=== PATIENT | female | born 1930 | race Caucasian/White ===

== ENCOUNTER 2016-08-31 16:24 | Emergency (ER) | payer MEDICARE, OTHER ==
[2016-08-31 17:12] LABS: BASOPHILS 0.8 % (0.0-2.0); EOSINOPHILS 0.9 % (0.0-6.0); EOSINOPHILS# 0.1 X 10^3uL (0.0-0.4); HEMOGLOBIN 13.1 g/dL (12.0-16.0); LYMPHOCYTES 21.1 % (20.0-40.0); LYMPHOCYTES# 1.3 X 10^3uL (0.8-3.8); MEAN CORPUS. HGB CONCENTRATION 33.6 g/dL (32.0-36.0); MEAN CORPUSCULAR HEMOGLOBIN 30.9 pg (29.0-35.0); MEAN PLATELET VOLUME 10.7 fL (7.4-10.4); MONOCYTES 8.8 % (2.0-10.0); MONOCYTES# 0.5 X 10^3uL (0.2-1.0); NEUTROPHILS 68.4 % (54.0-75.0); NEUTROPHILS# 4.2 X 10^3uL (2.6-6.7); PLATELET COUNT 157 X 10^3uL (130-440); RED BLOOD COUNT 4.24 X 10^6uL (4.20-6.10); RED CELL DISTRIBUTION WIDTH 12.9 % (11.5-14.5); WHITE BLOOD COUNT 6.2 X 10^3uL (3.9-10.7)
[2016-08-31] MEDS ORDERED: LABETALOL HCL 100 MG/20 ML VIAL IV ONE (17:16)
[2016-08-31 17:23] LABS: BLOOD UREA NITROGEN 28 mg/dL (7-17); CALCIUM 9.6 mg/dL (8.4-10.2); CHLORIDE 107 mmol/L (98-107); GLUCOSE 95 mg/dL (70-100); POTASSIUM 4.8 mmol/L (3.5-5.1); SODIUM 143 mmol/L (137-145)
[2016-08-31 17:46] LABS: TROPONIN I < 0.012 ng/mL (0.00-0.034)
[2016-08-31] MEDS ORDERED: LISINOPRIL 20 MG TABLET PO ONE (18:26)
--- NOTE | 2016-08-31 19:09 | ER NURSING DOCUMENTATION ---
Nurse's Notes [facility] Name:Ya Chong Age:85 yrs Sex:Female :1930 Arrival Date:08/31/2016 Time:16:24 BedTrauma-A Private MD:Cornell Mcgee Diagnosis:Hypertensive Headache Presentation: 08/31 16:41 Presenting complaint: Patient states: high BP with Headache. Transition of care: [facility]. charmaine Notified ED Physician of patient's arrival and CC Surinder Palm notified. 16:41 Method Of Arrival: Wheelchair cb 16:41 Acuity: CHARLENE 3 cb 16:57 Acuity: CHARLENE 2 lpr Triage Assessment: 18:04 Headache History: Other patient states that she has had a headache for two weeks. cb General: Appears in no apparent distress, well groomed, Behavior is cooperative. Pain: Complains of pain in occipital area and base of the skull Pain currently is 5 out of 10 on a pain scale. Pain began two weeks Also complains of no other associated symptoms. EENT: No deficits noted. Neuro: Level of Consciousness is awake, alert, Oriented to person, place, time, event, Reports headache occipital area, two weeks . Cardiovascular: Rhythm is regular. Respiratory: Airway is patent Trachea midline Respiratory effort is even, unlabored, Respiratory pattern is regular, symmetrical. GI: No deficits noted. : No deficits noted. Derm: Rash noted that is macular, papular, red, on right huitron and left huitron. Musculoskeletal: No deficits noted. Historical: - Allergies: Ciprofloxacin HCl; Sulfa (Sulfonamide Antibiotics); Pollens ; - Home Meds: 1. Tylenol 2. Aspirin Oral 3. Artificial Tears Opht 4. arnicare 5. Max Freeze 6. Levothroid Oral 7. Vitamin D Oral - PMHx: HYPOTHYROIDISM; closed head injury; - PSHx: nephrectomy ; HIP SURGERY; - Tetanus: unknown. - Ebola Screening: : Patient negative for fever greater than or equal to 101.5 degrees Fahrenheit, and additional compatible Ebola Virus Disease symptoms. Patient denies exposure to infectious person. Patient denies travel to an Ebola-affected area in the 21 days before illness onset. No symptoms or risks identified at this time. . - Immunization history: Pneumococcal vaccine is up to date, Flu Vaccine < 1 year. - Social history: Smoking status: Patient states was never smoker of tobacco. Screenin:17 Infectious Disease Risk None. Abuse screen: Denies threats or abuse. Denies injuries cb from another. Nutritional screening: No deficits noted. Vital Signs: 16:35 BP 210 / 110; Pulse 89; Resp 22; Temp 97.0(TE); Pulse Ox 94% ; Weight 51.71 kg; Height cb 5 ft. 4 in. (162.56 cm); Pain 5/10; 16:55 BP 202 / 88; Pulse 85; Resp 23; Pulse Ox 97% on R/A; cb 17:13 BP 180 / 110 (auto/); cb 17:17 Pulse 76 MON; Resp 20; Pulse Ox 92% ; cb 17:18 BP 180 / 87 (auto/); cb 17:22 Pulse 74 MON; Resp 21; Pulse Ox 89% ; cb 17:23 BP 191 / 92 (auto/); cb 17:27 Pulse 76 MON; Resp 20; Pulse Ox 94% ; cb 17:45 BP 184 / 87 (auto/); cb 17:47 Pulse 72 MON; Resp 20; Pulse Ox 93% ; cb 18:12 Pulse 72 MON; Resp 23; Pulse Ox 94% ; cb 18:15 BP 178 / 89 (auto/); cb 18:31 BP 186 / 94 (auto/); cb 18:32 Resp 30; cb 16:35 Body Mass Index 19.57 (51.71 kg, 162.56 cm) cb ED Course: 16:28 Patient arrived in ED. jl 16:28 Cornell Mcgee MD is Private Physician. jl 16:41 Mignon Love, RN is Primary Nurse. cb 16:42 Triage completed. cb 16:42 EKG done. (by ED staff). Reviewed by Benton Cadena MD. cb 16:45 Inserted peripheral IV: 18 gauge in right antecubital area and blood collected. cb 16:45 Labs drawn. (by ED staff). Sent per order to lab. cb 16:48 Benton Cadena MD is Attending Physician. jm 17:57 Port Xray Completed. hz 18:09 Cornell Mcgee MD is Referral Physician. jm 18:17 Valuables Remains with patient Patient has correct armband on for positive cb identification. Placed in gown. Bed in low position. Call light in reach. Side rails up X2. Adult w/ patient. Administered Medications: 17:05 CANCELLED (Physician Discretion): Labetalol 20 mg IVP once over 2 mins jm 17:10 Drug: Labetalol 10 mg; Route: IVP; Infused Over: 2 mins; Site: right antecubital; cb 18:21 Follow up: Response: Blood pressure is lowered cb 18:22 Drug: Lisinopril 20 mg; Route: PO; cb 19:23 Follow up: Response: Blood pressure is lowered cb Outcome: 16:55 Discharged to home via wheelchair, with friend. cb 16:55 Condition: stable 16:55 Discharge instructions given to patient, friend, Instructed on discharge instructions, follow up and referral plans. medication usage, Demonstrated understanding of instructions, medications, Prescriptions given X 1. 16:55 IV D/Arun 18:10 Discharge ordered by . avtar 19:09 Patient left the ED. charmaine 09/01 13:13 Discharge F/U Call: Spoke with: patient. Have you filled your prescriptions? yes. Did lp your discharge instructions answer all of your questions? Overall Care on a scale of 1-10 with 10 being the best care, you rate our care as: the rating of 10. Signatures: Mignon Love, RN RN Otilia Escamilla RN RN lp Meyer, John, MD MD jm Roberts, Leslie, RN RN lpr Zolnowski, Heather hz Lietz, Jeff jl
--- NOTE | 2016-08-31 19:09 | ER PHYSICIAN DOCUMENTATION ---
Physician Documentation [facility] Name:Ya Chong Age:85 yrs Sex:Female :1930 Arrival Date:08/31/2016 Time:16:24 BedTrauma-A Private MD:Cornell Mcgee ED, John Disposition: 08/31/16 18:10 Discharged to Home/Self Care. Impression: Hypertensive Headache. - Condition is Good. - Discharge Instructions: HIGH BLOOD PRESSURE Established Out of Control - HYPERTENSION, Established, Out of Control. - Prescriptions for Lisinopril 20 mg Oral - take 1 tablet by ORAL route once daily; 30 tablet. - Medical Reconciliation form form. - Follow up: Cornell Mcgee MD; When: 1 week; Reason: Continuance of care. - Problem is new. - Symptoms have improved. HPI: 08/31 18:27 This 85 yrs old Female presents to ER via Wheelchair with complaints of High Blood Pressure, Headache. 18:27 The patient has elevated blood pressure and discovered this at a drugstore, at a physician's office, and sent to the emergency department for evaluation. Onset: The symptom(s)/episode began/occurred today. Modifying factors:. Associated signs and symptoms: Pertinent positives: headache. Severity of symptoms: At its worst the blood pressure was 210 mm Hg. The patient has not experienced similar symptoms in the past. The patient has been recently seen by a physician: the patient's primary care provider, Dr. Mcgee, with different complaint(s), rash. . [facility]. She called Dr. Mcgee's office and was told to come to the ER for management since she also had a REED. . Historical: - Allergies: Ciprofloxacin HCl; Sulfa (Sulfonamide Antibiotics); Pollens ; - Home Meds: 1. Tylenol 2. Aspirin Oral 3. Artificial Tears Opht 4. arnicare 5. Max Freeze 6. Levothroid Oral 7. Vitamin D Oral - PMHx: HYPOTHYROIDISM; closed head injury; - PSHx: nephrectomy ; HIP SURGERY; - Tetanus: unknown. - Ebola Screening: : Patient negative for fever greater than or equal to 101.5 degrees Fahrenheit, and additional compatible Ebola Virus Disease symptoms. Patient denies exposure to infectious person. Patient denies travel to an Ebola-affected area in the 21 days before illness onset. No symptoms or risks identified at this time. . - Immunization history: Pneumococcal vaccine is up to date, Flu Vaccine < 1 year. - Social history: Smoking status: Patient states was never smoker of tobacco. ROS: 18:28 Constitutional: Negative for fatigue, fever. jm 18:28 Eyes: Negative for blurry vision, visual disturbance. 18:28 Cardiovascular: Negative for chest pain. 18:28 Respiratory: Negative for cough, shortness of breath. 18:28 Abdomen/GI: Negative for abdominal pain, nausea, vomiting, diarrhea. 18:28 Back: Negative for pain with movement, radiated pain. 18:28 : Negative for urinary symptoms, urinary frequency. 18:28 MS/extremity: Positive for swelling. 18:28 Skin: Positive for swelling. 18:28 Neuro: Positive for headache. 18:28 All other systems are negative. Exam: 18:35 Constitutional: The patient appears alert, awake, comfortable. jm 18:35 Eyes: Periorbital structures: appear normal, Pupils: equal, round, and reactive to light and accomodation. 18:35 ENT: Mouth: is normal, Voice: is normal. 18:35 Cardiovascular: Rate: normal, Rhythm: regular. 18:35 Respiratory: Respirations: normal, Breath sounds: are normal. 18:35 Abdomen/GI: Bowel sounds: normal, Palpation: abdomen is soft and non-tender. 18:35 Musculoskeletal/extremity: Circulation is intact in all extremities. Sensation intact. DVT Exam: No signs of deep vein thrombosis. Calves: are non-tender, have equal circumference. 18:35 Neuro: Mentation: is normal, Memory: is normal. 18:35 Neuro: Orientation: is normal. 18:35 Psych: Behavior/mood is pleasant, cooperative, Affect is calm. Vital Signs: 16:35 BP 210 / 110; Pulse 89; Resp 22; Temp 97.0(TE); Pulse Ox 94% ; Weight 51.71 kg; Height cb 5 ft. 4 in. (162.56 cm); Pain 5/10; 16:55 BP 202 / 88; Pulse 85; Resp 23; Pulse Ox 97% on R/A; cb 17:13 BP 180 / 110 (auto/); cb 17:17 Pulse 76 MON; Resp 20; Pulse Ox 92% ; cb 17:18 BP 180 / 87 (auto/); cb 17:22 Pulse 74 MON; Resp 21; Pulse Ox 89% ; cb 17:23 BP 191 / 92 (auto/); cb 17:27 Pulse 76 MON; Resp 20; Pulse Ox 94% ; cb 17:45 BP 184 / 87 (auto/); cb 17:47 Pulse 72 MON; Resp 20; Pulse Ox 93% ; cb 18:12 Pulse 72 MON; Resp 23; Pulse Ox 94% ; cb 18:15 BP 178 / 89 (auto/); cb 18:31 BP 186 / 94 (auto/); cb 18:32 Resp 30; cb 16:35 Body Mass Index 19.57 (51.71 kg, 162.56 cm) cb MDM: 16:48 Patient medically screened. 09/01 11:52 Differential diagnosis: hypertensive crisis. Data reviewed: vital signs, nurses notes, old medical records, lab test result(s), EKG, radiologic studies, and as a result, I will discharge patient. Test interpretation: by ED physician or midlevel provider: plain radiologic studies, ECG. Counseling: I had a detailed discussion with the patient and/or guardian regarding: the historical points, exam findings, and any diagnostic results supporting the discharge/admit diagnosis, lab results, radiology results, the need for outpatient follow up. ECG:. Medication response: The patient's symptoms have improved, labetolol . Physician consultation: Cornell Mcgee MD regarding patient's condition, outpatient follow-up, next week, and will see patient next week, would like medications started, lisinopril 20mg Q day. ED course: Pt w HTN REED and crisis. No signs of end organ damage based on labs. BP better after meds. Will send home w lisopril rx and f/u next week w Dr. Mcgee. . 08/31 17:20 Order name: CBC AUTO DIF, MDIF/RMOR IF IND; Complete Time: 17:48 [facility] 08/31 17:47 Order name: BASIC METABOLIC PANEL; Complete Time: 17:48 [facility] 08/31 17:47 Order name: TROPONIN I; Complete Time: 17:48 [facility] 08/31 18:06 Order name: [place]ST [place] [id number]; Complete Time: 18:07 [facility] 08/31 16:49 Order name: 12-lead EKG; Complete Time: 17:00 08/31 16:49 Order name: Iv Saline Lock; Complete Time: 17: 08/31 16:49 Order name: Pulse Ox Continuous; Complete Time: : EC:52 Rhythm is regular. QRS [place] is Normal. MA interval is normal. QRS interval is normal. T jm waves are Normal. No ST changes noted. Dispensed Medications: 08/31 17:05 CANCELLED (Physician Discretion): Labetalol 20 mg IVP once over 2 mins 17:10 Drug: Labetalol 10 mg; Route: IVP; Infused Over: 2 mins; Site: right antecubital; cb 18:21 Follow up: Response: Blood pressure is lowered cb 18:22 Drug: Lisinopril 20 mg; Route: PO; cb 19:23 Follow up: Response: Blood pressure is lowered cb Signatures: Mignon Love RN RN Benton Manuel MD MD
--- NOTE | 2016-09-01 07:53 | RADIOLOGY REPORT ---
A limited single portable view of the chest is compared with the prior exam dated 03/20/2012. Cardiac silhouette is now at the upper limits of normal. Again noted is evidence of old granulomatous disease. The pulmonary vasculature appears unremarkable. No infiltrate, fluid or pneumothorax is seen. IMPRESSION: Stable evidence of old granulomatous disease. No acute cardiopulmonary abnormality is identified. MTDD
== END 2016-08-31 19:09 | disposition home or self-care (01) ==
LOC: ER 16:24
DX: R51 Headache (principal); I16.9 Hypertensive crisis, unspecified; I10 Essential (primary) hypertension; Z79.899 Other long term (current) drug therapy; Z79.82 Long term (current) use of aspirin
CPT/HCPCS: 71010; 80048; 84484; 85025; 93005; 93010; 96374; 99284; 99285

== ENCOUNTER 2016-09-02 12:24 | Observation (INO) | payer MEDICARE, OTHER ==
[2016-09-02] MEDS ORDERED: HOME MEDICATION LIST NEEDED 1 EA EACH MC ONE (12:27)
[2016-09-02] MEDS ORDERED: MAG-AL PLUS XS SUSP 30 ML UDC PO PRN (12:27)
[2016-09-02] MEDS ORDERED: ZOLPIDEM TARTRATE 5 MG TABLET PO PRN (12:27)
[2016-09-02] MEDS ORDERED: ACETAMINOPHEN 325 MG TABLET PO PRN (12:27)
[2016-09-02] MEDS ORDERED: POLYETHYLENE GLYCOL 3350 17 GM POWD.PACK PO PRN (12:27)
[2016-09-02 14:04] LABS: ALBUMIN 4.1 g/dL (3.5-5.0); ALKALINE PHOSPHATASE 67 U/L (38-126); ALT 34 U/L (9-52); AST 29 U/L (14-36); BILIRUBIN, DIRECT 0.1 mg/dL (0.0-0.4); BILIRUBIN, TOTAL 1.1 mg/dL (0.2-1.3); BLOOD UREA NITROGEN 24 mg/dL (7-17); CALCIUM 9.3 mg/dL (8.4-10.2); CHLORIDE 105 mmol/L (98-107); CREATININE 0.9 mg/dL (0.5-1.0); GLUCOSE 97 mg/dL (70-100); POTASSIUM 4.2 mmol/L (3.5-5.1); SODIUM 141 mmol/L (137-145); TOTAL PROTEIN 7.1 g/dL (6.3-8.2)
[2016-09-02 14:05] LABS: C-REACTIVE PROTEIN < 5.0 mg/L (<10.0)
[2016-09-02 14:15] LABS: ERYTHROCYTE SEDIMENTATION RATE 9 MM/HR (0-20)
[2016-09-02] MEDS: LABETALOL HCL 100 MG/20 ML VIAL IV PRN (14:58)
[2016-09-02 15:07] LABS: FREE T4 1.46 ng/dL (0.78-2.19)
[2016-09-02 15:21] LABS: THYROID STIMULATING HORMONE 1.56 uIU/mL (0.47-4.68)
[2016-09-02] MEDS ORDERED: ACETAMINOPHEN 500 MG TABLET PO PRN (16:39)
[2016-09-02] MEDS ORDERED: POLYVINYL ALCOHOL 1.4% OPHTH 75 DROP/15 ML BTL EACHEYE PRN (16:39)
[2016-09-02] MEDS ORDERED: LABETALOL HCL 100 MG/20 ML VIAL IV ONE (16:47)
[2016-09-02] MEDS ORDERED: hydrALAZINE HCL 25 MG TABLET PO SCH (17:00)
[2016-09-02] MEDS ORDERED: hydrALAZINE HCL 20 MG/ML VIAL IV SCH (21:00)
[2016-09-03 07:17] LABS: HEMATOCRIT 38.1 % (36.0-48.0); HEMOGLOBIN 12.8 g/dL (12.0-16.0); MEAN CELL VOLUME 96.5 fL (80.0-100.0); RED BLOOD COUNT 3.95 X 10^6uL (4.20-6.10)
[2016-09-03 07:18] LABS: BASOPHIL# 0.4 X 10^3uL (0.0-0.1); BASOPHILS 2.2 % (0.0-2.0); BLOOD UREA NITROGEN 29 mg/dL (7-17); CHLORIDE 107 mmol/L (98-107); CREATININE 1.2 mg/dL (0.5-1.0); EOSINOPHILS 1.6 % (0.0-6.0); EOSINOPHILS# 0.3 X 10^3uL (0.0-0.4); GLUCOSE 85 mg/dL (70-100); LYMPHOCYTES# 2.1 X 10^3uL (0.8-3.8); MEAN CORPUS. HGB CONCENTRATION 33.7 g/dL (32.0-36.0); MEAN CORPUSCULAR HEMOGLOBIN 32.5 pg (29.0-35.0); MEAN PLATELET VOLUME 10.9 fL (7.4-10.4); MONOCYTES 10.1 % (2.0-10.0); MONOCYTES# 1.6 X 10^3uL (0.2-1.0); NEUTROPHILS# 11.6 X 10^3uL (2.6-6.7); PLATELET COUNT 161 X 10^3uL (130-440); RED CELL DISTRIBUTION WIDTH 14.5 % (11.5-14.5); SODIUM 144 mmol/L (137-145)
[2016-09-03 07:24] LABS: NEUTROPHILS 73.1 % (54.0-75.0)
--- NOTE | 2016-09-03 08:31 | PROGRESS NOTE: IM APSO ---
Assessment and Plan - Date of Encounter Date of Encounter: 09/03/16 (1) Hypertensive emergency Status: Acute Assessment and plan: Workup in progress. Echocardiogram ordered. Ultrasound ordered including assessment of renal arteries. With prior closed head injury and headache, recheck CT scan. With left calf pain and swelling, check ultrasound. 24-hour urine is pending. Check urinalysis.Thyroid labs have already been checked and were normal. Cardiology consultation is pending. Transition to oral hydralazine. Continue labetalol IV as needed. Continue lisinopril. Depending upon results of testing may be able to go home later today. Conversely, it is possible that she will require urgent cardiology intervention. Current Visit: Yes (2) Leukocytosis Status: Acute Assessment and plan: Etiology unclear.Some component of stress demarginization. No symptoms of focal infection. Check urinalysis. Follow clinically. Inflammatory markers negative KEIRA is pending. Current Visit: Yes (3) History of unilateral nephrectomy Status: Acute Assessment and plan: In the context of hypertensive emergency as above. Current Visit: Yes (4) Headache Status: Acute Assessment and plan: As above, with hypertensive emergency. Rechecking CT. Considering blood pressure issues, will plan for outpatient nocturnal oximetry. Current Visit: Yes (5) LFT elevation Status: Acute Assessment and plan: Mild. Appears to have resolved. Ultrasound pending. Will likely need further outpatient evaluation if evidence of recurrence. Current Visit: Yes (6) Pain of left calf Status: Acute Assessment and plan: As above, we will order left lower extremity ultrasound. Doubt PE. Current Visit: Yes (7) Rash Status: Acute Assessment and plan: Bilateral lower extremities. Erythematous papules. No nodules. Appearance less consistent with eczema. Concern for possible vasculitis. KIERA ordered. Will add ANCA. Current Visit: Yes (8) DVT prophylaxis Status: Acute Assessment and plan: Ambulation. SCDs. Current Visit: Yes - Time Spent With Patient Total time spent with greater than 50% in coordination of care (as documented) at patient's floor/unit and/or counseling patient: 25 - 35 minutes (today or tomorrow) IM: PN Subjective General: no fatigue, no malaise, no pain, no tremor, no diaphoresis, no fever, no chills HEENT: headache (yesterday and last night but not today) Cardiovascular: no chest pain, no palpitations Respiratory: no cough, no wheeze, no SOB Gastrointestinal: no abdominal pain, no nausea, no vomiting Genitourinary: no dysuria Musculoskeletal: pain (posterior left calf, better), swelling (prior swelling and tenderness in the left calf2 days ago) Integumentary: rashes (bilateral lower extremities, red and bumpy) Neurological: no numbness, no tingling IM: PN Objective Exam - I&O/Vital Signs I&O: Intake & Output 09/02/16 09/03/16 09/03/16 21:59 05:59 13:59 Intake Total 500 600 Output Total 450 825 Balance 50 -225 Intake: Oral 500 600 Output: Urine 450 825 Other: Urine Appearance Clear Urine Color Yellow Voiding Method Toilet Toilet # Voids 4 Vital Signs: Last Vital Signs Temp 36.4 C 09/03/16 06:53 Pulse 67 09/03/16 06:53 Resp 16 09/03/16 06:53 BP 165/80 09/03/16 06:53 Pulse Ox 90 09/03/16 06:53 Oxygen Delivery Method Room Air - Constitutional General appearance: Present: thin - Head Head exam: Present: atraumatic - Eye Eye exam: Present: PERRL - ENT ENT exam: Present: mucous membranes moist - Neck Neck exam: Present: full ROM - Respiratory Respiratory exam: Present: CTAB. Absent: rales, rhonchi, wheezes - Cardiovascular Cardiovascular exam: Present: RRR. Absent: S3, S4 - GI/Abdominal GI/Abdominal exam: Present: normal bowel sounds, soft. Absent: bruit, organomegaly, tenderness - Extremities Exam Extremities exam: Absent: calf tenderness, Kaz's Sign, edema - Neurological Exam Neurological exam: Present: oriented X3, other (facial expressions symmetric. moving all 4 extremities equally) - Psychiatric Psychiatric exam: Present: anxious (mild). Absent: depressed - Skin Skin exam: Present: rash (Bilateral lower extremities. Red. Papular.) - Allied Health Notes Allied health notes reviewed: nursing - Lab Labs: Laboratory Last Values WBC 16.0 X 10^3uL (3.9-10.7) H 09/03/16 06:25 RBC 3.95 X 10^6uL (4.20-6.10) L 09/03/16 06:25 Hgb 12.8 g/dL (12.0-16.0) 09/03/16 06:25 Hct 38.1 % (36.0-48.0) 09/03/16 06:25 MCV 96.5 fL (80.0-100.0) D 09/03/16 06:25 MCH 32.5 pg (29.0-35.0) 09/03/16 06:25 MCHC 33.7 g/dL (32.0-36.0) 09/03/16 06:25 RDW 14.5 % (11.5-14.5) 09/03/16 06:25 Plt Count 161 X 10^3uL (130-440) 09/03/16 06:25 MPV 10.9 fL (7.4-10.4) H 09/03/16 06:25 Neutrophils % 73.1 % (54.0-75.0) 09/03/16 06:25 Lymphocytes % 13.0 % (20.0-40.0) L 09/03/16 06:25 Eosinophils % 1.6 % (0.0-6.0) 09/03/16 06:25 Basophils % 2.2 % (0.0-2.0) H 09/03/16 06:25 Neutrophils # 11.6 X 10^3uL (2.6-6.7) H 09/03/16 06:25 Lymphocytes # 2.1 X 10^3uL (0.8-3.8) 09/03/16 06:25 Monocytes 10.1 % (2.0-10.0) H 09/03/16 06:25 Monocytes # 1.6 X 10^3uL (0.2-1.0) H 09/03/16 06:25 Eosinophils # 0.3 X 10^3uL (0.0-0.4) 09/03/16 06:25 Basophils # 0.4 X 10^3uL (0.0-0.1) H 09/03/16 06:25 ESR 9 MM/HR (0-20) 09/02/16 13:30 Sodium 144 mmol/L (137-145) 09/03/16 06:25 Potassium 4.0 mmol/L (3.5-5.1) 09/03/16 06:25 Chloride 107 mmol/L (98-107) 09/03/16 06:25 Carbon Dioxide 23 mmol/L (22-30) 09/03/16 06:25 BUN 29 mg/dL (7-17) H 09/03/16 06:25 Creatinine 1.2 mg/dL (0.5-1.0) H 09/03/16 06:25 GFR Calculation Not Reportable 09/03/16 06:25 Glucose 85 mg/dL (70-100) 09/03/16 06:25 Calcium Not Reportable 09/03/16 06:25 Total Bilirubin 1.1 mg/dL (0.2-1.3) 09/02/16 13:30 Direct Bilirubin 0.1 mg/dL (0.0-0.4) 09/02/16 13:30 AST 29 U/L (14-36) 09/02/16 13:30 ALT 34 U/L (9-52) 09/02/16 13:30 Alkaline Phosphatase 67 U/L (38-126) 09/02/16 13:30 C-Reactive Protein < 5.0 mg/L (<10.0) 09/02/16 13:30 Total Protein 7.1 g/dL (6.3-8.2) 09/02/16 13:30 Albumin 4.1 g/dL (3.5-5.0) 09/02/16 13:30 TSH 1.56 uIU/mL (0.47-4.68) D 09/02/16 13:30 Free T4 1.46 ng/dL (0.78-2.19) 09/02/16 13:30 Free T3 pg/mL 4.24 pg/mL (2.77-5.27) 09/02/16 13:30 Quality Questions - VTE Prophylaxis Assessment VTE Present on Admission?: No Patient at risk for venous thromboembolism?: Yes VTE Risk Level: Moderate Risk Pharmaceutical VTE prophylaxis contraindication reason: contraindicated Mechanical VTE prophylaxis contraindication reason: N/A- VTE prophylaxsis ordered (2) Leukocytosis Qualifiers: Leukocytosis type: unspecified Qualified Code(s): D72.829 - Elevated white blood cell count, unspecified (4) Headache Qualifiers: Headache type: post-traumatic Headache chronicity pattern: chronic headache Intractability: not intractable Qualified Code(s): 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
--- NOTE | 2016-09-03 08:39 | HISTORY & PHYSICAL ---
DATE OF ADMISSION: 09/02/16 ATTENDING PHYSICIAN: Laura Meehan MD ADMITTING DIAGNOSES 1. Hypertensive urgency. 2. 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 HISTORY OF PRESENT ILLNESS: Patient is an 85-year-old patient of Dr. Mcgee who suddenly developed severe hypertension, initially noted at the drug store on 08/31/16. She had actually come to the office with complaint of a rash which had started on the lower extremities and then spread. However, during her office visit her blood pressure was found to be 203/110 and the patient was complaining of a mild headache. She was therefore transferred to the Emergency Room for further evaluation. In the Emergency Room patient had an EKG suggestive of left ventricular hypertrophy but no ischemia, and was in sinus rhythm. A chest x-ray was reported as showing evidence of old granulomatous disease but no acute cardiopulmonary abnormality, and laboratory studies including troponin were initially normal. She was given a dose of Labetalol IV and started on Lisinopril 20 mg daily. She was called yesterday to see how she was doing but did not take the call because she was asleep, and then noted that her blood pressure was extremely high today, and came to see our triage nurse who brought the problem to my attention. During her office visit today her blood pressure was 201/106 and did gradually improve to the 190/110 range. Her pulse was in the 70s and regular. The patient was not found to have any neurological changes. However, given the persistence of her severe hypertension and its abrupt onset, she was admitted for observation and blood pressure control. Probable relative history includes a longstanding history of benign hypertension untreated with medications and managed with diet and exercise per patient preference. However her baseline blood pressures seem to have been in the 125-132 range systolic with diastolics generally in the 75-80 range. During her past evaluations there have been a few high blood pressures, such as a May blood pressure of 152/96. Of significance is that the patient only has 1 kidney, since the right kidney was resected in 1999, I believe for a benign cyst, but I was not really able to trace that history back, and the patients history is very vague. There is a family history of hypertension in her mother whom she says lived to be 98, and had markedly uncontrolled blood pressure for much of her elderly life. There was no history of coronary artery disease, and her father lived to be 95. The patient is a never smoker, and states that she drinks alcohol about once a week, and likes to drink gin, but denies any heavy use of gin. She denies any new medications, or any new over the counter medications, except she says that she was taking 2 allergy medications, which she cannot name, but sound as if they might have been antihistamines, but had not taken those for a week, and when she did take them, only used them for a week. She has recently had a problem with intermittent rash which has been recurrent, and was thought to be due to an allergic reaction; however, again, I found her history somewhat confusing. ALLERGIES: Ciprofloxacin which causes itching. Sulfonamides cause nausea and vomiting. Allergic rhinitis which is seasonal to various pollens. MEDICATIONS Arnicare topically as needed. Artificial tears as needed. Aspirin 81 mg every other day. Levothyroxine 50 mcg daily. Lisinopril 20 mg daily just started. Pain relief gel Maxfreeze as needed. Tylenol rarely as needed. Vitamin D3 1000 International Units daily. PAST MEDICAL HISTORY 1. Patient took a fall as far as I can determine several weeks ago, when she hit the back of her head, wrenched her neck and hit the right side, including her hip, without severe injury. Since that fall, the patient has had [address] scans of the brain which are noncontrast. 2. History of recurrent aspiration with liquids and sometimes solids. Worked up with negative findings. 3. Atrophic vaginitis. 4. Cataracts. 5. History of cholelithiasis with no surgical intervention, asymptomatic. 6. Chronic insomnia. 7. History of colon polyps. 8. Degenerative disk disease. 9. Bilateral dry eye syndrome. 10. History of esophageal reflux which seems to have resolved. 11. Hyperlipidemia treated with behavioral modification. 12. Hypertension, untreated with medication. 13. Nocturnal hypoxemia for which she has declined evaluation and declined oxygen use. 14. Noted briefly to have elevated ALT and AST in 07/2016. 15. 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 16. Osteopenia. 17. Trace proteinuria has been noted. 18. Psoriasis, although I did not see evidence for that today. 19. History of urinary tract infections. 20. Varicose veins. 21. History of T10 compression fracture of unknown age, and some T9 wedging was also noted. PAST SURGICAL HISTORY 1. Cataract extraction with lens implantation on the left side 06/25/15. 2. Hernia repair 05/26/13 on the right side, Dr. Jean. 3. Total hip replacement on the right 2008. 4. Right nephrectomy 1999, which I understand is for benign reasons. SOCIAL HISTORY: She is . She lives alone with her 2 little dogs. She does not have any children. She is a retired teacher. She denies any drug use or marijuana use. She is never a smoker. She seems to have good social support from friends. FAMILY HISTORY: Her brother had brain cancer. Sister had breast cancer. Mother at 98 and had a history of uncontrolled hypertension, but no heart disease. Father lived to 95, also had no heart disease. Another brother had lymphoma. REVIEW OF SYSTEMS: Patient admits to being somewhat anxious about her blood pressure. She has a very mild slightly tender area in the left occipital parietal region as she indicates, but this has been present for some time and is unchanged. She has had some neck pain, but also feels that it is improved. She denies any blurred vision or visual changes or any kind. She denies any swallowing problems. She denies shortness of breath, chest pain, palpitations. She denies any abdominal pain, constipation or diarrhea. She denies any dysuria or hematuria. She denies any musculoskeletal weakness. She does have some chronic lower back pain which is mild. There is slight neck pain and some general arthritic-type complaints. PHYSICAL EXAMINATION VITAL SIGNS: Temperature 98, pulse 74, respiratory rate 16, O2 saturation 93% on room air. Blood pressure initially 201 over 106. Repeated on the left after 30 minutes, 180/100 and that was manually and on the right side 190/110. Weight is 117 pounds. Height 63.25 inches. GENERAL: Fully alert. She appears calm. She is somewhat thin. HEENT: Extraocular movements are intact. Sclerae are anicteric. Pupils are 3 mm and equal and reactive to light. I could no visualize the fundus. Cranial nerves are grossly intact. Oropharynx is moist. NECK: No jugular venous distention. No bruits. No adenopathy. No thyromegaly. Range of motion of the neck seems normal. LUNGS: Have decreased breath sounds but are clear. CARDIOVASCULAR: Regular. Somewhat hyperdynamic. She has a prominent S2 and may have a faint S4 gallop. PMI is nondisplaced. ABDOMEN: Soft, flat, nontender. No organomegaly. No masses palpable. EXTREMITIES: No cyanosis, clubbing or edema. Toes are acrocyanotic. Dorsalis pedis are poor and tibialis pedis pulses are feeble also bilaterally. SKIN: Shows an interesting palpable raised rash nonblanching, which in areas is confluent, and in other areas somewhat petechial but raised. The rash seemed to me to be limited to the lower legs and in particular the anterior leg on the shins. I could not detect the rash elsewhere. The remainder of her skin has seborrheic keratosis. DATA: I reviewed the laboratory studies from the ER on Tuesday and the EKG and chest x-ray, they are as described above. I repeated a BMP today which shoed a blood urea of nitrogen of 24, otherwise unremarkable. Hepatic panel was now normal. CRP was less than 5. ESR was 9. TSH was 1.56. T4 1.46. T3 4.24. I did order an KEIRA which is still pending. ASSESSMENT AND PLAN 1. Hypertensive urgency rather than emergency. Patient has had ongoing severely elevated blood pressures for several days now and lives alone. I felt she should be hospitalized for observation with an attempt to work up potential secondary causes of hypertension, and I felt that her rash on the lower extremities was suspicious for leukocytoclastic vasculitis. However, her sed rate and CRP are normal. She was placed on Labetalol as needed, and I have now added Hydralazine orally and scheduled to the regimen, and we will continue her on her Lisinopril, not wishing to lower her blood pressure too rapidly. Metanephrine and a 24-hour urine have been ordered to make sure there is not a hormonal cause for the problem. She does not have hypokalemia to suggest an adrenal problem at this time. The thyroid studies are completely within range. She is not experiencing any end-organ symptoms, and I do not feel that the headache is related, since that has actually been present since May 2016. I am concerned that the absence of 1 kidney may be significant, and I have ordered an ultrasound of the abdomen and retroperitoneum to evaluate the other kidney, and will also order an echocardiogram to look for left ventricular hypertrophy, which is suggested by her EKG. I think it would be reasonable for Cardiology to assist in this evaluation and treatment. 2. Rash. 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 However, it may be reasonable to order arterial doppler evaluation of her remaining renal artery, or if that is not feasible, to consider an MRA. Patient has been placed on telemetry overnight in addition. 3. Hypothyroidism. Continue her medications as her levels seem fine. 4. Deep vein thrombosis prophylaxis. We will ambulate the patient at this time. I am reluctant to use blood thinners other than her normal aspirin, because I feel that she is at risk of cerebral hemorrhage with her very high blood pressures, should we place her on any Lovenox. Since she has an uncomfortable rash on the lower extremities, I am also not inclined to use sequential compression devices. 5. Preventive care. Seems to be up to date in terms of Pneumovax and Prevnar, flu shots and tetanus vaccinations. She has declined the shingles vaccine. She remains a full code at this point. Dr. Mcgee will resume care in the morning. IRWIN
[2016-09-03] MEDS ORDERED: hydrALAZINE HCL 25 MG TABLET PO SCH (09:00)
[2016-09-03] MEDS ORDERED: LISINOPRIL 20 MG TABLET PO SCH (09:00)
[2016-09-03] MEDS ORDERED: CHOLECALCIFEROL 1,000 UNIT CAPSULE PO SCH (09:00)
[2016-09-03] MEDS ORDERED: LEVOTHYROXINE 50 MCG TABLET PO SCH (09:00)
[2016-09-03] MEDS: HYDRALAZINE 10 MG PO SCH ×2 (09:57→13:16)
[2016-09-03] MEDS: LABETALOL HCL 100 MG/20 ML VIAL IV PRN (09:58)
--- NOTE | 2016-09-03 10:07 | US REPORT ---
HISTORY: Abnormal liver function studies. COMPARISON: None. FINDINGS: There is a mildly heterogeneous echodense liver suggestive of diffuse hepatocellular disease such as fatty infiltration. No focal mass. The gallbladder is normal in appearance without stones or wall thi ckening. No intra or extrahepatic bile duct dilatation. Common bile duct measures 7 mm in maximum isaac meter. The spleen is unremarkable. The right kidney is surgically absent. There is no evidence of recurrent mass in the renal bed. The l eft kidney is unremarkable. No mass cyst or hydronephrosis. The left kidney measures 9.6 cm in lengt h. The visualized portions of the abdominal aorta, IVC, and pancreas are unremarkable. No free fluid is noted. IMPRESSION: 1. The right kidney is surgically absent. No evidence of recurrent mass. 2. Mild heterogeneous increased echo density liver which could be seen with hepatic steatosis. 3. Gallbladder and bladder ducts are within normal limits. Final Electronic Signature: This report was electronically signed by Inocencio Espinoza MD on 09/03/2016 10 :05 AM. [facility] /
--- NOTE | 2016-09-03 10:13 | US REPORT ---
HISTORY: Left lower extremity swelling. COMPARISON: None FINDINGS: Duplex Doppler color flow sonography, 2D ultrasound of vascular anatomy, and Doppler spectral analysi s of the left lower extremity veins was performed. The common femoral, superficial femoral, and popliteal veins are fully patent, with normal compressib ility, no filling defect, normal waveforms, and normal augmentation. The calf veins are patent. No Pugh's cyst noted. IMPRESSION: No sonographic evidence of left lower extremity venous thrombus. Results were communicated to DIEGO Eid MD nurse Liz at 09/03/2016 10:07 AM. Final Electronic Signature: This report was electronically signed by Inocencio Espinoza MD on 09/03/2016 10 :10 AM. [facility] /
--- NOTE | 2016-09-03 12:59 | DC SUMMARY: IM Note ---
Discharge Summary: IM/Peds Provider: Date of Admission: 09/02/16 Admitting Provider: JESSI CHAVEZ MD Attending Provider: JESSI CHAVEZ MD Discharging Provider: DIEGO MCGEE MD Primary Care Provider: Discharge Date: 09/03/16 Consults: 09/02/16 16:48 Cardiology Consult [CONS] Routine Reason: Please assist with evaluation and treatment of sudden onset of severe hypertension. Please contact Dr. Mcgee with recommendations. Thanks. 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 Echocardiogram showing LVH, but ejection fraction is good. Abdominal ultrasound showing absence of right kidney with normal size of the left kidney. Ultrasound of the left lower extremity showing no evidence of DVT. Seen by cardiology. They recommended addition of carvedilol and HCTZ to her lisinopril. Laboratory studies for secondary causes in process including 24- hour urine. With regard to other issues, she did have moderate leukocytosis without focus of infection. This can be reassessed next week. Her thyroid tests had been recently done, and there was no evidence of overtreatment. Medications were reviewed with her in detail. Side effects reviewed. I did write a prescription for hydralazine as needed for markedly elevated blood pressures. - Time Spent with Patient Total time spent providing and/or coordinating discharge services: Discharge - Patient/Caregiver Discharge Instructions Activity Level: Day-to-day activities. Hold off on strenuous exercise for now. No heavy lifting or straining. Diet: Low-salt. Follow up: DIEGO MCGEE MD [Primary Care Provider] - 09/07/16 2:15 pm Overall discharge status: patient is progressing back to baseline Print Language: SAO TOMEAN Home Medications: hydrALAZINE HCL [Apresoline*] 12.5 - 25 mg PO QID PRN #25 tab PRN Reason: Blood Pressure, Increased Carvedilol 6.25 mg PO BID #60 tab Hydrochlorothiazide 12.5 mg PO DAILY #30 tab Disposition: HOME, SELF-CARE Discharge Summary Data - Medication History Medication History: Home Medications Acetaminophen [Tylenol*] 500 mg PO Q6H PRN 09/02/16 Arnica 120 ml TP DAILY 09/02/16 Cholecalciferol [Vitamin D*] 1,000 unit PO DAILY 09/02/16 Levothyroxine [Synthroid*] 50 mcg PO DAILY 09/02/16 Lisinopril [Prinivil*] 20 mg PO DAILY 09/02/16 Menthol [Zim's Max-Freeze] 113.4 gm TP DAILY PRN 09/02/16 Polyvinyl Alcohol 1.4% Ophth [Teargen*] 1 drop EACHEYE QID PRN 09/02/16 aspirin EC [Aspirin EC*] 81 mg PO EVERY OTHER DAY 09/02/16 Carvedilol 6.25 mg PO BID #60 tab 09/03/16 Hydrochlorothiazide 12.5 mg PO DAILY #30 tab 09/03/16 hydrALAZINE HCL [Apresoline*] 12.5 - 25 mg PO QID PRN #25 tab 09/03/16 Inpatient Medications 09/02/16 12:27 Mag-Al Plus Xs Susp [Maalox Liquid] 30 ml PO Q4H PRN Polyethylene Glycol 3350 [miraLAX] 17 gm PO BID PRN Zolpidem Tartrate [Ambien] 5 mg PO HS PRN 09/02/16 12:30 Labetalol HCl [Trandate] 10 mg IV Q4H PRN 09/02/16 16:39 Acetaminophen [Tylenol X-Strength] 500 mg PO Q6H PRN Polyvinyl Alcohol 1.4% Ophth [Teargen] 1 drop EACHEYE QID PRN 09/03/16 09:00 Cholecalciferol [Vitamin D3] 1,000 unit PO DAILY Lisinopril [Prinivil] 20 mg PO DAILY Non-Formulary Medication 1 PO QID 09/04/16 06:30 Levothyroxine [Synthroid] 50 mcg PO 0630 09/04/16 09:00 aspirin EC [Ecotrin 81 mg] 81 mg PO EVERY OTHER DAY Procedures and tests throughout hospitalization: Completed Lab Orders 09/02/16 13:30 BASIC METABOLIC PANEL [CHEM] Urgent C-REACTIVE PROTEIN [CHEM] Urgent ESR [ERYTHROCYTE SEDIMENTATION RATE] [HEM] Urgent FREE T3 [CHEM] Urgent FREE T4 [CHEM] Urgent HEPATIC PANEL [CHEM] Urgent TSH [THYROID STIMULATING HORMONE] [CHEM] Urgent 09/03/16 06:25 BASIC METABOLIC PANEL [CHEM] AMDRAW CBC AUTO DIF, MDIF/RMOR IF IND [HEM] AMDRAW Completed Imaging Orders 09/03/16 08:24 Ultrasound [US EXT LOWER LEFT [id number]] [US] Urgent 09/03/16 12:45 US ABDOMEN, COMPLETE [id number] [US] Routine Pending Orders 09/02/16 12:27 Admit: Observation Routine Activity: Ambulate with Assist TID Activity: Bathroom Privileges . Assess pulse oximetry CONTINUOUS Intake and Output QSHIFT I&O Obtain weight 0600 Resuscitation Status Routine Telemetry monitoring CONTINUOUS TELE Titrate Oxygen TITRATE B/W 90-95% Vital Signs Q2H Mag-Al Plus Xs Susp [Maalox Liquid] 30 ml PO Q4H PRN Polyethylene Glycol 3350 [miraLAX] 17 gm PO BID PRN Zolpidem Tartrate [Ambien] 5 mg PO HS PRN 09/02/16 12:28 VTE Prophylaxis Scoring/ Ordering Routine 09/02/16 12:30 Labetalol HCl [Trandate] 10 mg IV Q4H PRN 09/02/16 12:33 BASIC METABOLIC PANEL [CHEM] Urgent METANEPHRINES, URINE 24 HR [SEND] Routine 09/02/16 12:45 NPO After midnight 0000 09/02/16 13:30 ANTI NUCLEAR ANTIBODY [SEND] Routine 09/02/16 16:39 Acetaminophen [Tylenol X-Strength] 500 mg PO Q6H PRN Polyvinyl Alcohol 1.4% Ophth [Teargen] 1 drop EACHEYE QID PRN 09/02/16 16:47 Echocardiogram [CARDIO] Routine 09/02/16 16:48 Cardiology Consult [CONS] Routine 09/03/16 08:07 ct [CAT SCAN; HEAD W/O CON 61008] [CT] Stat UA W/O MICRO - FELIX, CUL IF IND [URINE] Urgent 09/03/16 09:00 Cholecalciferol [Vitamin D3] 1,000 unit PO DAILY Lisinopril [Prinivil] 20 mg PO DAILY Non-Formulary Medication 1 PO QID 09/03/16 Breakfast Nothing By Mouth [DIET] 09/04/16 06:30 Levothyroxine [Synthroid] [place] [address]/04/16 09:00 aspirin EC [Ecotrin 81 mg] 81 mg PO EVERY OTHER DAY Labs on day of discharge: Labs from last 24 hours 09/03/16 09/02/16 09/02/16 06:25 13:30 13:30 WBC 16.0 H RBC 3.95 L Hgb 12.8 Hct 38.1 MCV 96.5 D MCH 32.5 MCHC 33.7 RDW 14.5 Plt Count 161 MPV 10.9 H Neutrophils % 73.1 Lymphocytes % 13.0 L Eosinophils % 1.6 Basophils % 2.2 H Neutrophils # 11.6 H Lymphocytes # 2.1 Monocytes 10.1 H Monocytes # 1.6 H Eosinophils # 0.3 Basophils # 0.4 H ESR Sodium 144 Potassium 4.0 Chloride 107 Carbon Dioxide 23 BUN 29 H Creatinine 1.2 H GFR Calculation Not Reportable Glucose 85 Calcium Not Reportable Total Bilirubin Direct Bilirubin AST ALT Alkaline Phosphatase C-Reactive Protein Total Protein Albumin TSH 1.56 D Free T4 1.46 Free T3 pg/mL 4.24 Anti-Nuclear Antibody Pending 09/02/16 13:30 WBC RBC Hgb Hct MCV MCH MCHC RDW Plt Count MPV Neutrophils % Lymphocytes % Eosinophils % Basophils % Neutrophils # Lymphocytes # Monocytes Monocytes # Eosinophils # Basophils # ESR 9 Sodium 141 Potassium 4.2 Chloride 105 Carbon Dioxide 26 BUN 24 H Creatinine 0.9 GFR Calculation Not Reportable Glucose 97 Calcium 9.3 Total Bilirubin 1.1 Direct Bilirubin 0.1 AST 29 ALT 34 Alkaline Phosphatase 67 C-Reactive Protein < 5.0 Total Protein 7.1 Albumin 4.1 TSH Free T4 Free T3 pg/mL Anti-Nuclear Antibody IM: Discharge Physical Exam - I&O/Vital Signs I&O: Intake & Output 09/02/16 09/03/16 09/03/16 21:59 05:59 13:59 Intake Total 500 600 Output Total 450 825 Balance 50 -225 Intake: Oral 500 600 Output: Urine 450 825 Other: Urine Appearance Clear Urine Color Yellow Voiding Method Toilet Toilet # Voids 4 Vital Signs: Last Vital Signs Temp 36.3 C L 09/03/16 11:00 Pulse 71 09/03/16 11:00 Resp 16 09/03/16 11:00 BP 174/87 09/03/16 11:00 Pulse Ox 94 09/03/16 11:00 Oxygen Delivery Method Room Air - Constitutional General appearance: Present: thin - Head Head exam: Present: atraumatic - Eye Eye exam: Present: PERRL - ENT ENT exam: Present: mucous membranes moist - Neck Neck exam: Present: full ROM - Respiratory Respiratory exam: Present: CTAB. Absent: rales, rhonchi, wheezes - Cardiovascular Cardiovascular exam: Present: RRR. Absent: S3, S4 - GI/Abdominal GI/Abdominal exam: Present: normal bowel sounds, soft. Absent: bruit, organomegaly, tenderness - Extremities Exam Extremities exam: Absent: calf tenderness, Kaz's Sign, edema - Neurological Exam Neurological exam: Present: oriented X3, other (facial expressions symmetric. moving all 4 extremities equally) - Psychiatric Psychiatric exam: Present: anxious (mild). Absent: depressed - Skin Skin exam: Present: rash (Bilateral lower extremities. Red. Papular.) - Allied Health Notes Allied health notes reviewed: nursing
[2016-09-03] MEDS ORDERED: HYDRALAZINE 10 MG PO SCH (13:00)
--- NOTE | 2016-09-03 13:13 | CT REPORT ---
HISTORY: Headache, prior closed head injury COMPARISON: 07/27/2016 TECHNIQUE: Axial non-contrast images obtained from skull vertex through foramen magnum. Dose reduction technique was utilized. FINDINGS: Unchanged mild diffuse atrophy again noted. There is no hemorrhage. There is no hydrocephalus. No mass lesion is identified. Mars white differentiation adequate, there is no infarction. No midline shift is identified. The paranasal sinuses are clear. There is no subdural or epidural collection. S kull is intact. IMPRESSION: No acute findings noted within the brain. Similar mild diffuse atrophy without significant chronic white matter changes. Report called to Darrin the nurse taking care of the patient Final Electronic Signature: This report was electronically signed by Ryan Gale MD on 09/03/2016 1 :11 PM. anand /
[2016-09-03 13:24] VITALS: BP 201/90; PULSE 70; RESP 20; TEMP 97.6; O2SAT 91
[2016-09-03] MEDS ORDERED: LABETALOL HCL 100 MG/20 ML VIAL IV ONE (13:27)
[2016-09-03 13:38] LABS: URINE MUCUS NONE SEEN (Up to 25%); URINE RBC NONE SEEN (0-5/hpf); URINE SQUAMOUS EPITHELIAL CELL NONE SEEN (<= 15/hpf)
[2016-09-03 13:39] LABS: URINE APPEARANCE CLEAR; URINE COLOR YELLOW; URINE GLUCOSE NORMAL (NEGATIVE); URINE LEUKOCYTE ESTERASE 25 WBC/uL (1+) (NEGATIVE); URINE NITRITE NEGATIVE (NEGATIVE); URINE PROTEIN NEGATIVE (NEG - TRACE)
[2016-09-03 13:40] LABS: URINE BACTERIA <10 ORGANISMS/hpf (<10/hpf); URINE BILIRUBIN NEGATIVE (NEGATIVE); URINE BLOOD NEGATIVE (NEGATIVE); URINE KETONE NEGATIVE (NEGATIVE); URINE UROBILINOGEN 0.2mg/dL (Normal) (NEG-1mg/dL); URINE WBC 0-4/hpf (0-4/hpf)
--- NOTE | 2016-09-03 15:32 | CONSULTATION ---
DATE OF CONSULTATION: 09/03/16 WWE WRESTLER: Douglas Coreas MD REQUESTING PHYSICIAN: Laura Meehan MD REASON FOR CONSULTATION: Hypertension. HISTORY OF PRESENT ILLNESS: The patient is a 85-year-old female seen today at [facility] for evaluation of hypertension. She was admitted via her primary care physicians office yesterday with hypertensive urgency. She had been placed on Lisinopril 2 days prior; however, her blood pressure remained elevated in the 200/100 range. She denied any associated chest pain or headache. She was admitted and placed on Hydralazine, Labetalol as well as her Lisinopril. Her blood pressure has improved this morning 170s/80s range. She continues to feel well and has no complaints at the present time. She reports having a long standing of elevated blood pressure, but it does not sound like she has been on medical therapy for that until recently. She has no known coronary artery disease. Additionally, she is being evaluated for a rash on her legs. PAST MEDICAL HISTORY 1. Hypertension. 2. Hyperlipidemia. 3. Degenerative joint disease. 4. Chronic insomnia. 5. Gall stones. 6. Degenerative joint disease. PAST SURGICAL HISTORY 1. Cataract surgery. 2. Hernia repair. 3. Hip surgery 2008. 4. Right nephrectomy in 1999. It is unclear why this was performed. FAMILY HISTORY: No premature cardiovascular disease. SOCIAL HISTORY: She is and lives alone. She does not smoke or drink alcohol. REVIEW OF SYSTEMS: She reports feeling well with no recent fevers, chills, nausea or vomiting. No weight gain or weight loss. No cough. No hemoptysis. No chest pain. No palpitations. No GI or complaints. She has mild arthritic complaints. PHYSICAL EXAMINATION VITAL SIGNS: Blood pressure 174/87. Heart rate 70s in sinus rhythm. Oxygen saturation 94% on room air. GENERAL: Elderly female in no apparent distress. Alert and oriented x3. NECK: Neck veins are not elevated, carotid upstrokes normal. No bruits. CHEST: Lungs clear to auscultation, no wheeze or rale. CARDIAC: S1 and S2 normal. No murmur. No rub. ABDOMEN: Soft, nontender, nondistended. No abdominal masses, no bruits. EXTREMITIES: No cyanosis, clubbing or edema. Peripheral pulses are palpable in upper and lower extremities and she has maculopapular rash involving her shins bilaterally. ECHO: She had a rest echocardiogram this morning which I have been able to review personally. She has moderate concentric left ventricular hypertrophy, LVEF 60%. No wall motion abnormalities, she has no significant valvular disease. LABORATORY DATA: Hemoglobin 12.8, potassium 4.0, creatinine 1.2. TSH 1.56. Urine is negative for protein. MEDICATIONS Aspirin 81 mg every other day. Labetalol 10 mg IV q.4 hours as needed. Lisinopril 20 mg daily. Levothyroxine 50 mcg daily. Hydralazine 10 mg q.i.d. Vitamin D. Ambien PRN. EKG read by me demonstrates sinus rhythm. Normal axis. No acute ST-T changes. No definite left ventricular hypertrophy on EKG. IMPRESSION 1. Hypertension, likely benign essential hypertension. 2. Prior nephrectomy for unclear reasons. 3. Normal LVEF with moderate left ventricular hypertrophy on echocardiogram, no significant valvular heart disease. RECOMMENDATION: This patient most likely has benign essential hypertension. Will continue medical treatment for her hypertension as is being done with Lisinopril 20 mg daily. I would change Labetalol to oral Carvedilol 6.25 mg b.i.d. She can probably discontinue Hydralazine at this time. Would add low- dose of diuretics such as Hydrochlorothiazide 12.5 mg daily. We would be happy to see her in the office in the next 1-2 weeks. I would recommend repeating a basic metabolic panel within the next week given her solitary kidney and the use of an Josue inhibitor and possibly Thiazide diuretic. Findings and recommendations were discussed with the patient. All questions were answered. Thank you for asking us to participate in the care of this very nice patient. IRWIN
[2016-09-04] MEDS ORDERED: LEVOTHYROXINE 50 MCG TABLET PO SCH (06:30)
== END 2016-09-03 14:05 | disposition home or self-care (01) ==
LOC: IN 12:36
PROVIDERS: ADMIT Internal Medicine; ATTEND Internal Medicine
DX: I16.1 Hypertensive emergency (principal); D72.829 Elevated white blood cell count, unspecified; Z90.5 Acquired absence of kidney; R51 Headache; M79.662 Pain in left lower leg; R21 Rash and other nonspecific skin eruption; R94.5 Abnormal results of liver function studies; E78.5 Hyperlipidemia, unspecified; M85.89 Other specified disorders of bone density and structure, multiple sites; G47.34 Idiopathic sleep related nonobstructive alveolar hypoventilation; Z99.81 Dependence on supplemental oxygen; M15.9 Polyosteoarthritis, unspecified; G47.00 Insomnia, unspecified; M51.35 Other intervertebral disc degeneration, thoracolumbar region; I83.93 Asymptomatic varicose veins of bilateral lower extremities; Z87.440 Personal history of urinary (tract) infections; Z79.899 Other long term (current) drug therapy
CPT/HCPCS: 36415; 70450; 76700; 80048; 80076; 81001; 83835; 84439; 84443; 84481; 85025; 85651; 86039; 86140; 93041; 93306; 96374; 96376; G0378; G0379

== ENCOUNTER 2016-09-05 00:08 | Emergency (ER) | payer MEDICARE, OTHER ==
[2016-09-05] MEDS ORDERED: cloNIDine HCL 0.1 MG TABLET PO ONE (00:31)
--- NOTE | 2016-09-05 01:39 | ER NURSING DOCUMENTATION ---
Nurse's Notes [facility] Name:Ya Chong Age:85 yrs Sex:Female :1930 Arrival Date:09/05/2016 Time:00:08 Bed4 Private MD:Cornell Mcgee Diagnosis:Hypertension Presentation: 09/05 00:16 Presenting complaint: Patient states: Pt states she was having high blood pressure mk2 readings at home with ringing in her ears and also hearing music in her ears. Pt was given new bp meds this week if her pressure was over 190 per pt and ems. Pt called EMS then took the hydralazine 25mg after EMS arrival. Pt is alert and oriented and has no symptoms. All resolved complaints have resolved. Pt continues to be hypertensive upon arrival. Pt denies cp, sob and REED. Transition of care: Home. Care prior to arrival: None. Medication(s) given: hydralazine 25mg boat captain. Pt states she took all hypertensive medications today. 00:16 Acuity: CHARLENE 2 mk2 00:16 Method Of Arrival: EMS: 410 mk2 Triage Assessment: 00:27 General: Appears in no apparent distress, Behavior is anxious, cooperative, pleasant. mk2 Pain: Denies pain. 00:28 Neuro: Level of Consciousness is awake, alert, Oriented to person, place, time, event, mk2 Glucose And Syrup Weigher are equal bilaterally Speech is normal, Facial symmetry appears normal, Pupils are PERRLA. Cardiovascular: Heart tones S1 S2. Respiratory: Breath sounds are clear bilaterally. : Reports being treated for UTI currently. Historical: - Allergies: Ciprofloxacin HCl; Sulfa (Sulfonamide Antibiotics); Pollens ; - Home Meds: 1. hydralazine 25 mg oral tab prn 195/95 2. lisinopril 20 mg oral tab 1 tab once daily 3. carvedilol 6.25 mg oral tab 1 tab 2 times per day 4. cefdinir 300 mg oral cap 1 cap every 12 hours 5. hydrochlorot 12.5mg daily 6. hydralazine 10 mg oral tab 1 tab 4 times per day with food - PMHx: HYPOTHYROIDISM; HYPERTENSION; - PSHx: HIP SURGERY; nephrectomy ; - Tetanus: < 10 years. - Ebola Screening: : Patient negative for fever greater than or equal to 101.5 degrees Fahrenheit, and additional compatible Ebola Virus Disease symptoms. Patient denies exposure to infectious person. Patient denies travel to an Ebola-affected area in the 21 days before illness onset. No symptoms or risks identified at this time. . - Immunization history: Pneumococcal vaccine is up to date, Flu Vaccine < 1 year. - Social history: Smoking status: Patient states was never smoker of tobacco. Patient/guardian denies using alcohol, street drugs. Screenin:30 Infectious Disease Risk None. Abuse screen: Denies threats or abuse. Nutritional mk2 screening: No deficits noted. Assessment: 00:30 See Triage Assessment done by same RN. 2 Vital Signs: 00:29 BP 218 / 85; Pulse 69; Resp 15; Temp 98.3; Pulse Ox 95% on R/A; Weight 50.35 kg; Height mk2 5 ft. 4 in. (162.56 cm); Pain 0/10; 00:32 BP 203 / 76 (auto/); mk2 00:34 Pulse 67 MON; Resp 17; Pulse Ox 94% ; mk2 00:44 BP 188 / 83 (auto/); Pulse 68 MON; Resp 19; Pulse Ox 96% ; mk2 00:45 BP 187 / 78 (auto/); mk2 00:49 Pulse 73 MON; Resp 24; Pulse Ox 94% ; mk2 01:01 BP 139 / 61; Pulse 70; Resp 18; Pulse Ox 95% on R/A; Pain 0/10; mk2 00:29 Body Mass Index 19.05 (50.35 kg, 162.56 cm) mk2 ED Course: 00:09 Patient arrived in ED. ma1 00:09 Cornell Mcgee MD is Private Physician. ma1 00:16 Britney Avilez, TRESSA is Primary Nurse. mk2 00:21 Triage completed. mk2 00:30 Arm band placed on Bed in low position Call Light in Reach Gowned HOB Elevated Side mk2 rails up x1. 00:30 Valuables Remains with patient. playground monitor on. Pulse ox on. NIBP on. Verbal mk2 reassurance given. Warm blanket given. 00:32 Benton Cadena MD is Attending Physician. avtar 00:46 Resting quietly. Friends at bedside. Pt continues to deny any symptoms. mk2 01:02 Cornell Mcgee MD is Referral Physician. avtar 01:20 Pt states she feels "off" and that she doesn't feel ready to go home when attempted to mk2 discharge. Dr. De La Vega is aware and discussing with pt. Pt appears very anxious, evidenced by rapid speech and voicing many unrelated concerns. Administered Medications: 00:25 Drug: cloNIDine 0.2 mg; Route: PO; fc 00:46 Follow up: Response: Blood pressure is lowered mk2 Outcome: 01:03 Discharge ordered by . avtar 01:36 Discharged to home via wheelchair, Pt states she will move slowly at home when mk2 changing positions. Pt now feels comfortable going home. Pt educated on prn medication prescribed to her this week. Pt expresses understanding prior to discharge. 01:36 Condition: improved 01:36 Discharge instructions given to patient, friend, Instructed on discharge instructions, follow up and referral plans. medication usage. 01:37 Patient left the ED. mk2 Signatures: Benton Cadena MD MD jm Kruger, Meg, RN RN carol ann2 efra paez Melissa ma1
--- NOTE | 2016-09-05 01:39 | ER PHYSICIAN DOCUMENTATION ---
Physician Documentation [facility] Name:Ya Chong Age:85 yrs Sex:Female :1930 Arrival Date:09/05/2016 Time:00:08 Bed4 Private MD:Cornell Mcgee ED, John Disposition: 09/05/16 01:03 Discharged to Home/Self Care. Impression: Hypertension. - Condition is Good. - Discharge Instructions: HYPERTENSION, Established, HYPERTENSION, Established, Out of Control. - Medical Reconciliation form form. - Follow up: Cornell Mcgee MD; When: 4- 6 days; Reason: Continuance of care. - Problem is an ongoing problem. - Symptoms have improved. HPI: 09/05 02:36 This 85 yrs old Female presents to ER via EMS with complaints of High Blood jm Pressure. 01:00 Pt here w elevate BP, tinnitus and auditory hallucinations. Pt states she hears jm "beautiful music" around her house, but couldn't find the source, so she figured it was in her head. She checked her BP and it was 220 systolic. Pt called 911 and came in. She took a hydralazine prior to arrival. Pt denies REED, CP, SOB, or other neuro complaints. . 02:36 The patient has elevated blood pressure and discovered this at home. Onset: The jm symptom(s)/episode began/occurred 1 week(s) ago, and became worse today. Associated signs and symptoms: Pertinent positives: tinnitus and auditoy hallucinations. . Severity of symptoms: At its worst the blood pressure was 220 mm Hg. The patient has not experienced similar symptoms in the past. The patient has been recently seen at the [facility], last week, The patient has recently been admitted at [facility]. Historical: - Allergies: Ciprofloxacin HCl; Sulfa (Sulfonamide Antibiotics); Pollens ; - Home Meds: 1. hydralazine 25 mg oral tab prn 195/95 2. lisinopril 20 mg oral tab 1 tab once daily 3. carvedilol 6.25 mg oral tab 1 tab 2 times per day 4. cefdinir 300 mg oral cap 1 cap every 12 hours 5. hydrochlorot 12.5mg daily 6. hydralazine 10 mg oral tab 1 tab 4 times per day with food - PMHx: HYPOTHYROIDISM; HYPERTENSION; - PSHx: HIP SURGERY; nephrectomy ; - Tetanus: < 10 years. - Ebola Screening: : Patient negative for fever greater than or equal to 101.5 degrees Fahrenheit, and additional compatible Ebola Virus Disease symptoms. Patient denies exposure to infectious person. Patient denies travel to an Ebola-affected area in the 21 days before illness onset. No symptoms or risks identified at this time. . - Immunization history: Pneumococcal vaccine is up to date, Flu Vaccine < 1 year. - Social history: Smoking status: Patient states was never smoker of tobacco. Patient/guardian denies using alcohol, street drugs. ROS: 01:00 Constitutional: Negative for fatigue, fever. jm 01:00 Eyes: Negative for blurry vision, visual disturbance. 01:00 ENT: Positive for tinnitus. 01:00 Cardiovascular: Negative for chest pain, edema. 01:00 Respiratory: Negative for cough, shortness of breath. 01:00 Abdomen/GI: Negative for nausea. 01:00 MS/extremity: Negative for swelling. 01:00 Neuro: Positive for tinnitus, Negative for dizziness, headache. Exam: 01:00 Constitutional: The patient appears alert, awake, anxious. jm 01:00 Eyes: Periorbital structures: appear normal, Pupils: equal, round, and reactive to light and accomodation, Extraocular movements: intact throughout. 01:00 Cardiovascular: Rate: normal, Rhythm: regular. 01:00 Respiratory: Respirations: normal, Breath sounds: are normal. 01:00 Neuro: Mentation: is normal, Memory: is normal. 01:00 Neuro: Gait: is steady. 01:00 Psych: Behavior/mood is anxious, Affect is animated. Vital Signs: 00:29 BP 218 / 85; Pulse 69; Resp 15; Temp 98.3; Pulse Ox 95% on R/A; Weight 50.35 kg; Height mk2 5 ft. 4 in. (162.56 cm); Pain 0/10; 00:32 BP 203 / 76 (auto/); mk2 00:34 Pulse 67 MON; Resp 17; Pulse Ox 94% ; mk2 00:44 BP 188 / 83 (auto/); Pulse 68 MON; Resp 19; Pulse Ox 96% ; mk2 00:45 BP 187 / 78 (auto/); mk2 00:49 Pulse 73 MON; Resp 24; Pulse Ox 94% ; mk2 01:01 BP 139 / 61; Pulse 70; Resp 18; Pulse Ox 95% on R/A; Pain 0/10; mk2 00:29 Body Mass Index 19.05 (50.35 kg, 162.56 cm) 2 MDM: 00:32 Patient medically screened. 02:00 Differential diagnosis: hypertensive crisis. Data reviewed: vital signs, nurses notes, avtar and as a result, I will discharge patient. Counseling: I had a detailed discussion with the patient and/or guardian regarding: the historical points, exam findings, and any diagnostic results supporting the discharge/admit diagnosis, the need for outpatient follow up, with the patient's primary care provider. Medication response: The patient's symptoms have improved, clonidine reduced the patient's elevated blood pressure to within acceptable limits. ED course: Pt's BP better after meds. Pt told to f/u w Dr. Meehan tomorrow or Dr. Mcgee on Tuesday. . 09/05 00:50 Order name: Pulse Ox Continuous; Complete Time: 01:22 Dispensed Medications: 00:25 Drug: cloNIDine 0.2 mg; Route: PO; fc 00:46 Follow up: Response: Blood pressure is lowered [facility] Signatures: Benton Cadena MD MD jm Kruger, Meg, RN RN [facility] efra paez
== END 2016-09-05 01:38 | disposition home or self-care (01) ==
LOC: ER 00:08
DX: I10 Essential (primary) hypertension (principal); H93.13 Tinnitus, bilateral; Z79.899 Other long term (current) drug therapy; Z74.3 Need for continuous supervision
CPT/HCPCS: 99284

== ENCOUNTER 2016-09-24 04:20 | Emergency (ER) | payer MEDICARE, OTHER ==
[2016-09-24 04:48] LABS: HEMATOCRIT 31.6 % (36.0-48.0); HEMOGLOBIN 10.5 g/dL (12.0-16.0); MEAN CELL VOLUME 92.8 fL (80.0-100.0); MEAN CORPUS. HGB CONCENTRATION 33.3 g/dL (32.0-36.0); MEAN CORPUSCULAR HEMOGLOBIN 30.9 pg (29.0-35.0); MEAN PLATELET VOLUME 9.8 fL (7.4-10.4); PLATELET COUNT 146 X 10^3uL (130-440); RED BLOOD COUNT 3.41 X 10^6uL (4.20-6.10); RED CELL DISTRIBUTION WIDTH 12.4 % (11.5-14.5); WHITE BLOOD COUNT 8.4 X 10^3uL (3.9-10.7)
[2016-09-24 04:50] LABS: BLOOD UREA NITROGEN 23 mg/dL (7-17); CALCIUM 8.9 mg/dL (8.4-10.2); CHLORIDE 101 mmol/L (98-107); CREATININE 1.1 mg/dL (0.5-1.0); POTASSIUM 4.7 mmol/L (3.5-5.1); SODIUM 135 mmol/L (137-145)
[2016-09-24 04:51] LABS: GLUCOSE 201 mg/dL (70-100)
[2016-09-24 04:56] LABS: INR 1.1
--- NOTE | 2016-09-24 05:36 | ER NURSING DOCUMENTATION ---
Nurse's Notes [facility] Name:Ya Chong Age:86 yrs Sex:Female :1930 Arrival Date:09/24/2016 Time:04:20 BedTrauma-A Private MD:Cornell Mcgee Diagnosis:Postop Wound Disruption, Internal Presentation: 09/24 04:27 Acuity: CHARLENE 2 04:33 Presenting complaint: EMS states: PT had renal artery stent placed yesterday at [facility]. Pt awoke this AM, had a syncopal episode upon standing. PT was pale and diaphoretic upon EMS arrival. PT was bradycardic upon arrival and hypotensive, however upon transport pt's color improved and so did her heart rate and blood pressure. Pt has cantaloupe size hematoma on the right inguinal area where catheter was inserted yesterday. Transition of care: Home. 04:33 Method Of Arrival: EMS: 410 Triage Assessment: 04:42 General: Appears in no apparent distress, Behavior is cooperative. Pain: Complains of rh pain in right femoral area. EENT: Oral mucosa is dry. Neuro: Level of Consciousness is awake, alert, obeys commands, Oriented to person, place, time, event. Cardiovascular: Capillary refill < 3 seconds Pulses are palpable in right dorsalis pedis artery and left dorsalis pedis artery Chest pain is denied. Respiratory: Airway is patent Respiratory effort is even, unlabored, Breath sounds are clear bilaterally. Denies shortness of breath. GI: Abdomen is non- distended Bowel sounds present X 4 quads. Denies diarrhea, nausea, vomiting. : No deficits noted. Derm: Skin is intact, is healthy with good turgor, Skin is pale. Musculoskeletal: Circulation, motion, and sensation intact Range of motion intact in all extremities. Swelling present in right femoral area. Historical: - Allergies: Ciprofloxacin HCl; Sulfa (Sulfonamide Antibiotics); Pollens ; - Home Meds: 1. hydralazine 25 mg oral tab prn 195/95 2. lisinopril 20 mg oral tab 1 tab once daily 3. carvedilol 6.25 mg oral tab 1 tab 2 times per day 4. cefdinir 300 mg oral cap 1 cap every 12 hours 5. hydrochlorot 12.5mg daily 6. hydralazine 10 mg oral tab 1 tab 4 times per day with food - PMHx: HYPERTENSION; HYPOTHYROIDISM; Hypertension (September 05, 2016); - PSHx: HIP SURGERY; nephrectomy ; RENAL ARTERY STENT; - Tetanus: < 10 years. - Ebola Screening: : Patient negative for fever greater than or equal to 101.5 degrees Fahrenheit, and additional compatible Ebola Virus Disease symptoms. - Immunization history: Flu Vaccine < 1 year. - Social history: Smoking status: Patient states was never smoker of tobacco. Screenin:44 Infectious Disease Risk None. Abuse screen: Denies threats or abuse. Denies injuries rh from another. Nutritional screening: No deficits noted. Assessment: 04:44 See Triage Assessment done by same RN. rh 05:21 Reassessment: No changes from previously documented assessment. Neuro: Level of rh Consciousness is awake, alert, obeys commands, Oriented to person, place, time, event, Denies dizziness. Cardiovascular: Pulses are palpable in right dorsalis pedis artery and left dorsalis pedis artery. GI: Denies nausea. Vital Signs: 04:31 BP 125 / 61; Pulse 75; Resp 16; Temp 97.2(TE); Pulse Ox 98% on 2 lpm NC; Weight 50.8 rh kg; Height 5 ft. 1 in. (154.94 cm); Pain 3/10; 05:06 BP 115 / 38; Pulse 70; Resp 17; Pulse Ox 98% on 2 lpm NC; Pain 3/10; rh 05:21 BP 110 / 48; Pulse 69; Resp 17; Pulse Ox 98% on 2 lpm NC; rh 04:31 Body Mass Index 21.16 (50.80 kg, 154.94 cm) rh ED Course: 04:20 Notified ED Physician of patient's arrival and chief complaint. Dr. Cadena notified. rh 04:20 child monitor on. Pulse ox on. NIBP on. Lights dimmed. Warm blanket given. Pillow rh given. Family accompanied patient. 04:20 Maintain field IV. Site clean & dry. Gauge & site: 18G in the L AC. Oxygen Oxygen rh administration via nasal cannula @ 2L/min. 04:22 Patient arrived in ED. ma1 04:22 Cornell Mcgee MD is Private Physician. ma1 04:27 Shannan Pineda is Primary Nurse. rh 04:27 Triage completed. rh 04:28 Benton Cadena MD is Attending Physician. avtar 04:44 Valuables Remains with patient Patient has correct armband on for positive rh identification. Placed in gown. Bed in low position. Call light in reach. Side rails up X2. Administered Medications: No medications were administered Outcome: 05:26 ER care complete, transfer ordered by . avtar 05:30 Transferred: Patient will be transferred to: [facility]. Facility rh Acceptance Time: September 24, 2016 at 05:00 Patient's face sheet was faxed to accepting facility. Face Sheet included patient's name, address, age, gender, contact information and insurance information. Patient will be transported by: [facility] [place] EMS ground. Report called to: [facility] CHARGE NURSE AT [facility] EM[facility] Nurse and Physician Charting and Notes were sent to Accepting Facility. All tests and/or procedures with results, if applicable, were sent to accepting facility. 05:30 Condition: stable 05:30 Discharge instructions given to patient, family, Instructed on need for transfer 05:35 Patient left the ED. rh Signatures: Benton Cadena MD MD jm Hofsess, Rachel Colleen Barraza [facility]
--- NOTE | 2016-09-24 05:36 | ER PHYSICIAN DOCUMENTATION ---
Physician Documentation [facility] Name:Ya Chong Age:86 yrs Sex:Female :[id number] Arrival Date:09/24/2016 Time:04:20 BedTrauma-A Private MD:Cornell Mcgee ED, John Disposition: 09/24/16 05:26 Transfer ordered to [facility]. Diagnosis is Postop Wound Disruption, Internal. - Reason for transfer: Specialty. - Accepting physician is Dr. Page. - Condition is Fair. - Problem is new. - Symptoms are unchanged. COBRA Form completed? Yes Transfer - Mode of Transportation Ambulance HPI: 09/24 05:03 This 86 yrs old Female presents to ER via EMS with complaints of Dizziness, jm Fainting. 05:03 The patient presents with dizziness, syncope. Onset: The symptom(s)/episode jm began/occurred just prior to arrival. Context: just prior to the episode the patient experienced no apparent symptoms. Modifying factors: the symptoms are aggravated by nothing. Associated signs and symptoms: Pertinent positives: syncope, bleeding in the R leg. . Severity of symptoms: in the emergency department the symptoms are unchanged. The patient has not experienced similar symptoms in the past. The patient has been recently seen by a physician: yesterday, Pt was treated for renal artery stenosis. She went home yesterday. Today she got out of bed and collapsed. EMS arrived and she was hypotensive, diaphoretic, nauseated, and bradycardic. They started a line and brought her in. They noted a large hematoma to her R thigh. . Historical: - Allergies: Ciprofloxacin HCl; Sulfa (Sulfonamide Antibiotics); Pollens ; - Home Meds: 1. hydralazine 25 mg oral tab prn 195/95 2. lisinopril 20 mg oral tab 1 tab once daily 3. carvedilol 6.25 mg oral tab 1 tab 2 times per day 4. cefdinir 300 mg oral cap 1 cap every 12 hours 5. hydrochlorot 12.5mg daily 6. hydralazine 10 mg oral tab 1 tab 4 times per day with food - PMHx: HYPERTENSION; HYPOTHYROIDISM; Hypertension (September 05, 2016); - PSHx: HIP SURGERY; nephrectomy ; RENAL ARTERY STENT; - Tetanus: < 10 years. - Ebola Screening: : Patient negative for fever greater than or equal to 101.5 degrees Fahrenheit, and additional compatible Ebola Virus Disease symptoms. - Immunization history: Flu Vaccine < 1 year. - Social history: Smoking status: Patient states was never smoker of tobacco. ROS: 05:21 Constitutional: Negative for body aches. jm 05:21 ENT: Negative for sinus congestion, sinus pain. 05:21 Cardiovascular: Negative for chest pain. 05:21 Respiratory: Negative for cough, shortness of breath. 05:21 Abdomen/GI: Negative for abdominal pain, nausea, vomiting. 05:21 MS/extremity: Positive for ecchymosis. 05:21 Skin: Positive for ecchymosis. Exam: 05:22 Constitutional: The patient appears alert, awake. jm 05:22 Eyes: Periorbital structures: appear normal, Conjunctiva: normal. 05:22 ENT: Mouth: is normal, Voice: is normal. 05:22 Cardiovascular: Rate: normal, Rhythm: regular. 05:22 Respiratory: Respirations: normal, Breath sounds: are normal. 05:22 Abdomen/GI: Bowel sounds: normal, Palpation: abdomen is soft and non-tender. 05:22 Musculoskeletal/extremity: Pulses: are normal with no appreciated deficits, Pt w cantaloupe sized hematoma to her R groin. I do not feel a thrill. It is not expanding. . 05:22 Skin: Appearance: ecchymosis, that are marked, of the pelvis and right femoral area, cellulitis, is not appreciated. 05:22 Neuro: Mentation: is normal, Memory: is normal. 05:22 Psych: Behavior/mood is pleasant, cooperative, Affect is calm. Vital Signs: 04:31 BP 125 / 61; Pulse 75; Resp 16; Temp 97.2(TE); Pulse Ox 98% on 2 lpm NC; Weight 50.8 rh kg; Height 5 ft. 1 in. (154.94 cm); Pain 3/10; 05:06 BP 115 / 38; Pulse 70; Resp 17; Pulse Ox 98% on 2 lpm NC; Pain 3/10; rh 05:21 BP 110 / 48; Pulse 69; Resp 17; Pulse Ox 98% on 2 lpm NC; rh 04:31 Body Mass Index 21.16 (50.80 kg, 154.94 cm) rh MDM: 04:28 Patient medically screened. jm 05:24 Differential diagnosis: Femoral artery internal bleed. . Data reviewed: vital signs, nurses notes, lab test result(s), and as a result, I will *Transfer Patient. Counseling: I had a detailed discussion with the patient and/or guardian regarding: the historical points, exam findings, and any diagnostic results supporting the discharge/admit diagnosis, lab results, the need to transfer to another facility, [facility] not [facility] the required specialist. Response to treatment: There is no appreciated change of the patient's symptoms at this time. Physician consultation: Dr. Page was called at 05:00, was contacted at 05:00, regarding transfer. ED course: PT needs IR to repair Femoral Artery deficit. Pt will go to the ER first and they will decide where to place her. . 09/24 04:51 Order name: BASIC METABOLIC PANEL [facility] 09/24 04:52 Order name: CBC WITHOUT A DIFFERENTIAL [facility] 09/24 04:59 Order name: PROTIME/INR [facility] 09/24 04:44 Order name: Iv Saline Lock; Complete Time: 04:44 rh 09/24 04:44 Order name: Cardiac Monitoring - Continuous; Complete Time: 04:44 rh 09/24 04:44 Order name: Pulse Ox Continuous; Complete Time: 04:44 rh 09/24 04:44 Order name: Oxygen; Complete Time: 04:44 rh Dispensed Medications: No medications were administered Signatures: Benton Cadena MD MD jm Hofsess, Rachel
== END 2016-09-24 05:36 | disposition short-term general hospital (02) ==
LOC: ER 04:20
DX: T81.32XA Disruption of internal operation (surgical) wound, not elsewhere classified, initial encounter (principal); R55 Syncope and collapse; R61 Generalized hyperhidrosis; I95.9 Hypotension, unspecified; R00.1 Bradycardia, unspecified; Z98.890 Other specified postprocedural states; Z95.828 Presence of other vascular implants and grafts; Z79.899 Other long term (current) drug therapy; Z99.89 Dependence on other enabling machines and devices; Z74.3 Need for continuous supervision
CPT/HCPCS: 80048; 85027; 85610; 99285; A0425; A0427